=== PATIENT | male | born 1950 | race Caucasian/White ===

== ENCOUNTER 2019-11-14 09:57 | Emergency (ER) | payer MEDICARE ==
[~2019-11-14] VITALS: Ht 185.4 cm; Wt 81.2 kg
[2019-11-14] MEDS ORDERED: NALTREXONE HCL50 MG PO (10:21)
[2019-11-14] MEDS ORDERED: DEPO-TESTO200 MG/1 M IM (10:23)
[2019-11-14] MEDS ORDERED: ST. JOSEPH ASPI81 M1 PO (10:32)
[2019-11-14] MEDS ORDERED: MELATONIN10 M3 PO (10:33)
[2019-11-14] MEDS ORDERED: CARTIA XT120 MG PO (12:48)
[2019-11-14] MEDS ORDERED: COUMADIN5 MG PO (12:48)
--- NOTE | 2019-11-15 20:56 | EKG ---
[facility] [address] [place] [address] Signed Sinus bradycardia Otherwise normal ECG When compared with ECG of 14-NOV-2019 10:05, (Unconfirmed) Sinus rhythm has replaced Atrial flutter Vent. rate has decreased BY 73 BPM QRS axis shifted right T wave amplitude has decreased in Anterior leads Confirmed by URBANO CHA MD ([id number]) on 11/15/2019 8:55:56 PM Electronically Signed By: URBANO CHA MD 11/15/192055 PATIENT NAME: DILLAN VALLECILLO Electrocardiogram DATE OF : 50 PHYSICIAN: URBANO CHA MD REPORT #: [id number] REPORT IS CONFIDENTIAL AND NOT TO BE RELEASED WITHOUT AUTHORIZATION
--- NOTE | 2019-11-15 20:56 | EKG ---
[facility] [address] [facility] [place] [address] Signed Atrial flutter with variable AV block with premature ventricular or aberrantly conducted complexes Left anterior fascicular block Abnormal ECG No previous ECGs available Confirmed by URBANO CHA MD ([id number]) on 11/15/2019 8:55:52 PM Electronically Signed By: URBANO CHA MD 11/15/192055 PATIENT NAME: DILLAN VALLECILLO Electrocardiogram DATE OF : 50 PHYSICIAN: URBANO CHA MD REPORT #: [id number] REPORT IS CONFIDENTIAL AND NOT TO BE RELEASED WITHOUT AUTHORIZATION
== END 2019-11-14 12:58 | disposition home or self-care (01) ==
LOC: ED 09:57
DX: I48.91 Unspecified atrial fibrillation (principal); Z79.899 Other long term (current) drug therapy; Z79.82 Long term (current) use of aspirin
CPT/HCPCS: 71045; 80053; 83735; 84484; 85025; 85610; 85730; 93005; 93010; 96374; 99285-25